=== PATIENT | male | born 2000 | race Caucasian/White ===

== ENCOUNTER 2021-05-13 11:13 | Emergency (ER) | payer OTHER ==
[2021-05-13] MEDS ORDERED: guaiFENesin/CODEINE 5 ML UDC PO STA (12:12)
[2021-05-13] MEDS ORDERED: BENZONATATE 100 MG CAPSULE PO STA (12:12)
--- NOTE | 2021-05-13 12:12 | ED Physician Documentation ---
PD HPI DYSPNEA - Stated complaint Stated Complaint: SOA/COUGH - Chief complaint Chief Complaint: Resp - History obtained from History obtained from: Patient - History of Present Illness Timing - onset: Last night Timing - duration: Hours Timing - details: Gradual onset Inciting event(s): No: URI Worsened by: Coughing Associated symptoms: Cough, Chest pain / discomfort, Palpitations. No: Fever, Hemoptysis, Wheezing Similar symptoms before: Has not had sx before - Additional information Additional information: This is a 20-year-old man who presents with complaints that he started coughing last night and then today after training he just has not been able to quit coughing. Has no history of asthma. He did get His first Covid vaccine approximately 4 days ago. He tells me he feels like he is in a pass out, he is having chest pain and difficulty breathing. Denies fever. He feels nauseous but no vomiting.He has not taken anything for the cough. Otherwise healthy 20-year-old. Review of Systems Constitutional: denies: Fever, Chills Eyes: denies: Loss of vision Nose: denies: Rhinorrhea / runny nose, Congestion Throat: reports: Sore throat (from coughing) Cardiac: reports: Chest pain / pressure, Palpitations Respiratory: reports: Dyspnea, Cough. denies: Hemoptysis, Wheezing GI: reports: Nausea. denies: Vomiting Neurologic: denies: Syncope PD PAST MEDICAL HISTORY - Past Medical History Past Medical History: Yes Cardiovascular: None Respiratory: None Neuro: None Endocrine/Autoimmune: None GI: None : None HEENT: None Psych: None Musculoskeletal: None Derm: None - Past Surgical History Past Surgical History: Yes HEENT: Tonsil/Adenoidectomy - Present Medications Home Medications: Ambulatory Orders Medication Instructions Recorded Confirmed Benzonatate [Tessalon] 100 mg PO TID PRN #30 cap 05/13/21 Promethazine HCl/Codeine 5 ml PO Q6H PRN #90 ml 05/13/21 [Promethazine-Codeine Syrup] - Allergies Allergies/Adverse Reactions: Allergies Allergy/AdvReac Type Severity Reaction Status Date / Time No Known Drug Allergies Allergy Verified 05/13/21 11:46 - Social History Does the pt smoke?: No Smoking Status: Never smoker Does the pt drink ETOH?: No Does the pt have substance abuse?: No - Immunizations Immunizations are current?: Yes PD ED PE NORMAL - Vitals Vital signs reviewed: Yes - General General: Alert and oriented X 3, Well developed/nourished, Other (Repetitive, non-stop coughing) - HEENT HEENT: Atraumatic, PERRL, Other (Erythema ) - Neck Neck: Supple, no meningeal sign, No JVD - Cardiac Cardiac: RRR, No murmur - Respiratory Respiratory: Other (Continual coughing but lungs are clear without audible wheezing) - Abdomen Abdomen: Normal bowel sounds, Soft - Derm Derm: Normal color - Neuro Neuro: Alert and oriented X 3, No motor deficit, No sensory deficit, Normal speech Results - Vitals Vitals: Vital Signs - 24 hr 05/13/21 05/13/21 05/13/21 11:46 12:03 12:48 Temperature 37 C 36.7 C Heart Rate 102 H 98 72 Respiratory 24 32 H 14 Rate Blood Pressure 150/79 H 136/78 H 124/75 O2 Saturation 98 95 94 05/13/21 14:32 Temperature 36.4 C L Heart Rate 72 Respiratory 12 Rate Blood Pressure 121/61 O2 Saturation 97 Oxygen O2 Source Room air - Labs Labs: Laboratory Tests 05/13/21 05/13/21 11:55 11:55 WBC 7.7 RBC 5.24 Hgb 14.8 Hct 45.8 MCV 87.4 MCH 28.2 MCHC 32.3 RDW 13.0 Plt Count 240 MPV 10.6 Neut # (Auto) 6.1 Lymph # (Auto) 1.1 L [place] # (Auto) 0.4 Eos # (Auto) 0.0 Baso # (Auto) 0.0 Absolute Nucleated RBC 0.00 Nucleated RBC % 0.0 Sodium 146 H Potassium 4.5 Chloride 106 Carbon Dioxide 28 Anion Gap 12.0 BUN 7 Creatinine 1.1 Estimated GFR (MDRD) 85 L Glucose 91 Calcium 9.7 PD MEDICAL DECISION MAKING - ED course Complexity details: re-evaluated patient ED course: 1416: Patient received nebulized lidocaine, Tessalon Perles and codeine cough syrup and was feeling better. He is able to talk to me now said that his symptoms started last night while he was cooking something at home. He does have an allergy to shellfish but was not cooking anything related to that or pants that it been used to cook shellfish in the past. He is never had anything like this before. His lungs he is not taking deep breaths but they are clear I do not hear wheezing. Sats are 98% on room air. Covid test is pending and he is told to isolate at home until he has those results hopefully in the next 48 hours. Prescribed Tessalon and Phenergan with codeine. He should avoid strenuous activity. [place] concerned about low testosterone levels. Departure - Departure Disposition: 01 Home, Self Care Clinical Impression: Cough, Laryngospasm Condition: Good Instructions: ED Viral Syndrome Prescriptions: Promethazine HCl/Codeine [Promethazine-Codeine Syrup] 5 ml PO Q6H PRN #90 ml PRN Reason: Cough Benzonatate [Tessalon] 100 mg PO TID PRN #30 cap PRN Reason: Cough Comments: You should isolate at home until the results of your Covid screen are known hopefully in 24 to 48 hours. Take the Tessalon Perle capsule up to 3 times a day as needed for cough Use the promethazine with codeine up to every 6 hours as needed for cough. Avoid any odors, fumes or strenuous activity. [place]. Return if difficulty breathing, uncontrolled coughing, vomiting and unable to keep anything down.
[2021-05-13] MEDS ORDERED: LIDOCAINE TOPICAL 4% 50 ML BOTTLE MM STA (12:14)
[2021-05-13 12:46] LABS: BASOPHILS % (AUTO) 0.3 %; EOSINOPHILS % (AUTO) 0.3 %; HCT - HEMATOCRIT 45.8 % (42.0-52.0); HGB - HEMOGLOBIN 14.8 g/dL (14.0-18.0); LYMPHOCYTES # (AUTO) 1.1 10^3/uL (1.5-3.5); LYMPHOCYTES % (AUTO) 14.6 %; MEAN CORPUSCULAR HEMOGLOBIN 28.2 pg (27.0-31.0); MEAN CORPUSCULAR HGB CONC 32.3 g/dL (32.0-36.0); MEAN CORPUSCULAR VOLUME 87.4 fL (80.0-94.0); MEAN PLATELET VOLUME 10.6 fL (7.4-11.4); MONOCYTES # (AUTO) 0.4 10^3/uL (0.0-1.0); MONOCYTES % (AUTO) 5.6 %; NEUTROPHILS # (AUTO) 6.1 10^3/uL (1.5-6.6); NEUTROPHILS % (AUTO) 79.1 %; PLT - PLATELET COUNT 240 10^3/uL (130-450); RED BLOOD COUNT 5.24 10^6/uL (4.70-6.10); WHITE BLOOD COUNT 7.7 x10^3/uL (4.8-10.8)
[2021-05-13 12:56] LABS: CALCIUM 9.7 mg/dL (8.5-10.3); CREATININE 1.1 mg/dL (0.6-1.2); POTASSIUM 4.5 mmol/L (3.5-5.0)
--- NOTE | 2021-05-13 13:44 | XRAY Report ---
PROCEDURE: Chest 2 View X-Ray INDICATIONS: cough TECHNIQUE: 2 view(s) of the chest. COMPARISON: None. FINDINGS: Surgical changes and devices: None. Lungs and pleura: No pleural effusions or pneumothorax. Lungs are clear. Mediastinum: Mediastinal contours are normal. Heart size is normal. Bones and chest wall: No suspicious bony abnormalities. Soft tissues appear unremarkable. IMPRESSION: No evidence acute pulmonary process. Reviewed by: Jovanni So MD on 05/13/2021 1:43 PM PDT Approved by: Jovanni So MD on 05/13/2021 1:43 PM PDT Station ID: [id number]
[2021-05-13 14:33] VITALS: BP 121/61
== END 2021-05-13 14:47 | disposition home or self-care (01) ==
LOC: ED 11:13
DX: J38.5 Laryngeal spasm (principal); Z20.822 Contact with and (suspected) exposure to COVID-19
CPT/HCPCS: 36415; 71046; 80048; 85025; 87635; 99283; 99284; A9270

== ENCOUNTER 2021-11-20 12:14 | Emergency (ER) | payer OTHER ==
[2021-11-20 12:30] VITALS: BP 155/75
--- NOTE | 2021-11-20 12:43 | ED Physician Documentation ---
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 He was lifting furniture and developed pain of the right Fourth finger just prior to arrival. Pain is much better after ice application declines pain medication. There was no clear recollected injury, just started hurting. Review of Systems Constitutional: reports: Reviewed and negative Eyes: reports: Reviewed and negative Ears: reports: Reviewed and negative Nose: reports: Reviewed and negative Throat: reports: Reviewed and negative PD PAST MEDICAL HISTORY - Past Medical History Cardiovascular: None Respiratory: None Neuro: None Endocrine/Autoimmune: None GI: None : None HEENT: None Psych: None Musculoskeletal: None Derm: None - Past Surgical History Past Surgical History: Yes HEENT: Tonsil/Adenoidectomy - Present Medications Home Medications: Ambulatory Orders Medication Instructions Recorded Confirmed No Known Home Medications 11/20/21 11/20/21 - Allergies Allergies/Adverse Reactions: Allergies Allergy/AdvReac Type Severity Reaction Status Date / Time No Known Drug Allergies Allergy Verified 11/20/21 12:31 - Social History Does the pt smoke?: No Smoking Status: Never smoker Does the pt drink ETOH?: No Does the pt have substance abuse?: No - Immunizations Immunizations are current?: Yes PD ED PE NORMAL - Vitals Vital signs reviewed: Yes - General General: Alert and oriented X 3, No acute distress - Extremities Extremities: Other (Tender to the DIP of the right ring finger with some br uising. Difficulty extending it all the way due to pain but normal neurovascular function at the tip without signs of flexor tenosynovitis.) - Neuro Neuro: Alert and oriented X 3, Normal speech - Psych Psych: Normal mood, Normal affect Results - Vitals Vitals: Vital Signs - 24 hr 11/20/21 12:29 Temperature 36.4 C L Heart Rate 70 Respiratory 14 Rate Blood Pressure 155/75 H O2 Saturation 98 Oxygen O2 Source Room air - Rads (name of study) Right fourth finger x-ray Radiology: EMP read contemporaneously (Negative) Procedures - Splint (location) R 4th finger Splint applied by: Physician Type of splint: Metal foam finger splint Other: Patient tolerated well, No complications, Neurovascular intact PD MEDICAL DECISION MAKING - ED course ED course: 21-year-old gentleman with finger injury. X-ray negative and acting most like a sprain. Placed in a metal foam finger splint for comfort and advised on necessary return precautions and follow-up. Departure - Departure Disposition: 01 Home, Self Care Clinical Impression: Finger sprain Qualifiers: Encounter type: initial encounter Finger: ring finger Sprain of finger site: interphalangeal joint Laterality: right Qualified Code(s): S63.634A - Sprain of interphalangeal joint of right ring finger, initial encounter Condition: Good Record reviewed to determine appropriate education?: Yes Instructions: ED Sprain Finger Comments: Follow-up with your doctor in 1 week if not better, return for new or worsening symptoms. Discharge Date/Time: 11/20/21 13:19
--- NOTE | 2021-11-20 13:01 | XRAY Report ---
PROCEDURE: Finger(s) RT INDICATIONS: finger inj TECHNIQUE: AP hand, 2 views of the fourth finger(s) acquired. COMPARISON: None FINDINGS: Bones: No fractures or dislocations. No suspicious bony lesions. Soft tissues: No suspicious soft tissue calcifications. IMPRESSION: No acute fourth finger fracture or dislocation Reviewed by: Chito Lora MD on 11/20/2021 1:00 PM PDT Approved by: Chito Lora MD on 11/20/2021 1:00 PM PDT Station ID: [id number]
== END 2021-11-20 13:19 | disposition home or self-care (01) ==
LOC: ED 12:14
DX: S63.634A Sprain of interphalangeal joint of right ring finger, initial encounter (principal); X50.0XXA Overexertion from strenuous movement or load, initial encounter
CPT/HCPCS: 99282; 99283